=== PATIENT | female | born 1975 | race Hispanic/Latino ===

== ENCOUNTER → 2018-09-27 | Outpatient (CLI) | payer BC ==
[~2018-09-27] MED LIST: FLAGYL250 MG PO; LEVBID0.375 MG PO; OMEPRAZOLE40 MG PO; PROZAC10 MG PO; ULTRAM50 MG PO; WELLBUTRIN SR150 MG PO
--- NOTE | 2018-09-27 09:15 | Diagnostic Imaging Report ---
PROCEDURE: Transvaginal ultrasound imaging of the pelvis was performed. COMPARISON: None. INDICATIONS: PELVIC PAIN FINDINGS: UTERUS: The uterus measures 8.0 x 3.6 x 4.5 cm. The endometrial echo-complex measures 0.6 cm. There is fluid within the cervix. Focal hyperechoic nodule within the cervix measures 4 mm and likely represents a polyp. There are also several cysts present within the cervix with the largest measuring 9 mm. OVARIES/ADNEXA: Right ovary measures 3.1 x 2.2 x 3.7 cm. A dominant cyst in the right ovary measures 1.7 x 1.1 x 1.8 cm. Left ovary is not visualized into bowel gas. PELVIS: No free fluid. IMPRESSION: 1. Fluid within the cervix, cervical polyp and multiple nabothian cysts. 2. Dominant cyst in the right ovary. Denilson Peacock D.O. Dictated by: Denilson Peacock D.O. on 09/27/2018 at 9:26 Electronically approved by: Denilson Peacock D.O. on 09/27/2018 at 9:26
== END ==
LOC: US 07:47
PROVIDERS: ATTEND Internal Medicine
DX: R10.2 Pelvic and perineal pain (principal); N76.1 Subacute and chronic vaginitis
CPT/HCPCS: 76830

== ENCOUNTER → 2019-02-09 | Outpatient (CLI) | payer BC ==
--- NOTE | 2019-02-09 12:22 | Diagnostic Imaging Report ---
EXAM: US ABDOMEN COMPLETE DATE: 02/09/2019 10:55 AM Time stamp on exam: INDICATION: Gastritis COMPARISON: None TECHNIQUE: Transverse and longitudinal bose scale and color doppler sonographic images of the upper abdomen were obtained. FINDINGS: LIVER 16.7 cm in the right midclavicular line. Increased echogenicity, normal contour, no masses. SPLEEN 11.5 cm in maximum diameter. Normal echogenicity, no masses. GALLBLADDER Removed BILE DUCTS No intra nor extra-hepatic biliary dilation. Common bile duct measures 0.4 cm PANCREAS: Visualized portions are normal. RIGHT KIDNEY: 11.3 cm Echogenicity: Normal Collecting System: No hydronephrosis Stones: None Cyst/Mass: None LEFT KIDNEY: 12.2 cm Echogenicity: Normal Collecting System: No hydronephrosis Stones: None Cyst/Mass: None VESSELS: Aorta: Nonaneurysmal Inferior Vena Cava: Patent Main Portal Vein: 0.7 cm, normal size with hepatopetal flow. FREE FLUID: None IMPRESSION: Increased hepatic parenchymal echogenicity compatible with steatosis. Status post cholecystectomy. Signed by: Dr. Jay Harmon M.D. on 02/09/2019 12:19 PM
== END ==
LOC: US 10:45
PROVIDERS: ATTEND Internal Medicine
DX: K29.90 Gastroduodenitis, unspecified, without bleeding (principal)
CPT/HCPCS: 76700

== ENCOUNTER → 2019-04-28 | Day surgery (SDC) | payer BC ==
[~2019-04-28] MED LIST changes: +IBUPROFEN400 MG PO; +LIDOCAINE HCL 2% LOCAL INJ 5 ML SDV VIAL INJ ONE; +MAGNESIUM OXID400 MG PO; +PROPOFOL IV EMULSION 10 MG/ML 20 ML VIAL ONE; +linzess PO
--- OUTSIDE RECORDS SUMMARY | 2019-04-28 06:33 | XMS REPORT | Summary of Care ---
Author Author CATA RG M.D. Organization Unknown Address Unknown Phone Unavailable Care Team Providers Care Paint Department Supervisor Name Role Phone KAUR WALTON M.D. Unavailable Unavailable CATA RG M.D. 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 * Start : 07-Jul-2018 Active Ibuprofen TABS * Refills: 0 Active Ranitidine TABS * Refills: 0 Active Ambien CR TBCR * Refills: 0 Active MethylPREDNISolone 4 MG Oral Tablet Therapy Pack Complete Medrol Dose Jonas as instructed * Quantity: 1 Refills: 0 CATA RG M.D. * Start : 17-Mar-2017 Active 21 Tablet Pack Naproxen 500 MG Oral Tablet TAKE 1 TABLET TWICE DAILY NEEDED. * Quantity: 60 Refills: 0 KAUR WALTON M.D. * Start : 24-Sep-2017 Active Allergies and Adverse Reactions Name Dates Details No Known Drug Allergies (Allergy) Status: Active Past Medical History Name Dates Details History of depression (V11.8, Z86.59) Status: Resolved History of Diverticulosis (562.10, K57.90) Status: Resolved History of gastritis (V12.79, Z87.19) Status: Resolved Procedures Procedure Dates Details History of Colonoscopy Completed Immunization Name Dates Details Immunizations not documented Family History Name Dates Details Family history of Known health problems: none (V49.89, Z78.9) Status: Active Social History Name Dates Details - Status: Name Dates Details Never smoker Vital Signs Date Test Result Details No Known Vitals to report Results Date Description Value Details Results not documented Plan of Care Name Dates Details Planned Observations Planned Goals not documented Interventions Provided Medication Changes* Fluticasone Propionate 50 MCG/ACT Nasal Suspension - Renew Instructions Name Dates Details Instructions not documented Encounters Appointment; MIGUELINA MULTANI Encounter Diagnosis: Problem not documented On: 06-Jan-2017 11:00 Appointment; CATA RG M.D. Encounter Diagnosis: Problem not documented On: 03-Feb-2017 15:00 Appointment; CATA RG M.D. Encounter Diagnosis: Problem not documented On: 17-Mar-2017 15:30 Appointment; MIGUELINA MULTANI Encounter Diagnosis: Problem not documented On: 24-Mar-2017 14:00 Appointment; KAUR WALTON M.D. Encounter Diagnosis: Problem not documented On: 24-Sep-2017 8:00 Appointment; KAUR WALTON M.D. Encounter Diagnosis: Problem not documented On: 15-Oct-2017 8:00 Appointment; KAUR WALTON M.D. Encounter Diagnosis: Problem not documented On: 15-Oct-2017 16:45
--- OUTSIDE RECORDS SUMMARY | 2019-04-28 06:33 | XMS REPORT ---
Author Author [facility] Address Unknown Phone Unavailable Care Team Providers Care Scratch Finisher Name Role Phone Liseth SCHAEFER Unavailable Unavailable Problems This patient has no known problems. Allergies, Adverse Reactions, Alerts This patient has no known allergies or adverse reactions. Medications This patient has no known medications. Results Test Description Test Time Test Comments Text Results Atomic Results Result Comments US ABDOMEN COMPLETE 2019-02-09 12:16:00 [place] [address] Patient Name: DARIUS WILKERSON MR #: [id number] : 1975 Age/Sex: 43/F Req #: [id number] Adm Physician: Ordered by: ELVIS SCHAEFER MD Report #: [id number] Location: Room/Bed: Procedure: [id number] US/US ABDOMEN COMPLETE Exam Date: Exam Time: REPORT STATUS: Signed EXAM: US ABDOMEN COMPLETE DATE: 02/09/2019 10:55 AM Time stamp on ex am: INDICATION: Gastritis COMPARISON: None TECHNIQUE: Transverse and longitudinal bose scale and color doppler sonographic images of the upper abdomen were obtained. FINDINGS: LIVER 16.7 cm in the right midclavicular line. Increased echogenicity, normal contour, no masses. SPLEEN 11.5 cm in maximum diameter. Normal echogenicity, no masses. GALLBLADDER Removed BILE DUCTS No intra nor extra-hepatic biliary dilation. Common bile duct measures 0.4 cm PANCREAS: Visualized portions are normal. RIGHT KIDNEY: 11.3 cm Echogenicity: Normal Collecting System: No hydronephrosis Stones: None Cyst/Mass: None LEFT KIDNEY: 12.2 cm Echogenicity: Normal Collecting System: No hydronephrosis Stones: None Cyst/Mass: None VESSELS: Aorta: Nonaneurysmal Inferior Vena Cava: Patent Main Portal Vein: 0.7 cm, normal size with hepatopetal flow. FREE FLUID: None IMPRESSION: Increased hepatic parenchymal echogenicity compatible with steatosis. Status post cholecystectomy. Signed by: Dr. Mic Ibrahim M.D. on 02/09/2019 12:19 PM Dictated By: MIC IBRAHIM MD 18 Transcribed By: GARIMA on 02/09/191218 COPY TO: ELVIS SCHAEFER MD US TRANSVAGINAL 2018-09-27 09:26:00 [place] [address] Patient Name: DARIUS WILKERSON MR #: [id number] : 1975 Age/Sex: 43/F Req #: [id number] Adm Physician: Ordered by: ELVIS SCHAEFER MD Report #: [id number] Location: Room/Bed: Procedure: [id number] US/US TRANSVAGINAL Exam Date: Exam Time: REPORT STATUS: Signed PROCEDURE: Transvaginal ultrasound imaging of the pelvis was performed. COMPARISON: None. INDICATIONS: PELVIC PAIN FINDINGS: UTERUS: The uterus measures 8.0 x 3.6 x 4.5 cm. The endometrial echo- complex measures 0.6 cm. There is fluid within the cervix. Focal hyperechoic nodule within the cervix measures 4 mm and likely represents a polyp. There are also several cysts present within the cervix with the largest measuring 9 mm. OVARIES/ADNEXA: Right ovary measures 3.1 x 2.2 x 3.7 cm. A dominant cyst in the right ovary measures 1.7 x 1.1 x 1.8 cm. Left ovary is not visualized into bowel gas. PELVIS: No free fluid. IMPRESSION: 1. Fluid within the cervix, cervical polyp and multiple nabothian cysts. 2. Dominant cyst in the right ovary. Imelda Peacock D.O. Dictated by: Imelda Peacock D.O. on 09/27/2018 at 9:26 Electronically approved by: Imelda Peacock D.O. on 09/27/2018 at 9:26 Dictated By: IMELDA PEACOCK DO 5 Transcribed By: BRIDGET on 09/27/18925 COPY TO: ELVIS SCHAEFER MD SCR MAMM BILATERAL CAATRINO CAD DIGITAL 2018-08-30 11:54:18 - SCR MAMM BILATERAL CATARINO CAD DIGITALBILATERAL DIGITAL SCREENING MAMMOGRAM 3D/2D WITH CAD: 08/28/2018CLINICAL: Asymptomatic. Digital breast tomosynthesis was performed in addition to routine CC and MLO views. Current mammographic images were evaluated by either a 422 Group M-Vu or a House Party ImageChecker CAD (computer aided detection system). Comparison is made to exams dated 12/02/2016 mammogram - [facility], 09/19/2015 mammogram - b, and 07/10/2010 mammogram - [facility]. The tissue of both breasts is heterogeneously dense. This may lower the sensitivity of mammography. No suspicious mass, architectural distortion, malignant type calcification, or lymph node abnormality detected. Breast architecture is stable compared to prior exams.IMPRESSION: NEGATIVEThere is no mammographic evidence of malignancy. Resume annual screening mammography in one year. Keyur barrosn/penrad:08/30/2018 11:54:18 Commissioner Of [employer]ocation Services: Barbie Montague , [facility]-letter sent: BIRADS 1-2 Normal Mammogram BI-RADS: 1 Negative
[2019-04-28 09:50] VITALS: BP 123/89
--- NOTE | 2019-04-28 12:32 | Operative Report ---
DATE OF PROCEDURE: 04/28/2019 SURGEON: Bj Valera MD PROCEDURE PERFORMED: Esophagogastroduodenoscopy. PREOPERATIVE DIAGNOSIS: Peptic ulcer disease. POSTOPERATIVE DIAGNOSIS: Gastritis. PREOPERATIVE MEDICATIONS: Consisted of IV sedation administered under MAC anesthesia. PROCEDURE IN DETAIL: Using an Olympus AdCamp video gastroscope, it was inserted into the patient's oropharynx, advanced to the hypopharynx and down to the esophagus. The mucosa present in the esophagus was normal. The GE junction was at 40 cm. Hiatal hernia was not seen. The stomach was entered and insufflated with air. The mucosa present in the cardia, fundus, body, and antrum was viewed. There was evidence of a gastritis, but no evidence of erosions or ulcerations were seen. Biopsies were obtained in the antrum and the fundus looking for the H pylori infection. The motility was normal. The pylorus was normal. The duodenal bulb and postbulbar duodenum were viewed and found to be within normal limits. The endoscope was then withdrawn back up into the stomach, retroflexed viewing the cardia, fundus, and below. Again, gastritis was seen. The scope was then passed back from the fundus of the stomach back up into the esophagus, hypopharynx, oropharynx and out of the patient's mouth and the procedure was ended. In conclusion, we have findings of a gastritis only. Bj Valera MD SAF/MODL /[id number]
== END | disposition home or self-care (01) ==
LOC: OR 06:31
PROVIDERS: ATTEND Internal Medicine Gastroenterology
DX: K25.9 Gastric ulcer, unspecified as acute or chronic, without hemorrhage or perforation (principal); K31.9 Disease of stomach and duodenum, unspecified; F41.9 Anxiety disorder, unspecified; K76.0 Fatty (change of) liver, not elsewhere classified; F17.210 Nicotine dependence, cigarettes, uncomplicated
CPT/HCPCS: 43239; 81025; J2001; J2704

== ENCOUNTER → 2019-07-22 | Outpatient (CLI) | payer BC ==
[~2019-07-22] MED LIST changes: +DIATRIZOATE MEGL/DIATRIZOA SOD 30 ML BTL PO ONE; +IOPAMIDOL 370 MG/ML 200 ML INFUS..BTL INJ ONE; -LIDOCAINE HCL 2% LOCAL INJ 5 ML SDV VIAL INJ ONE; -PROPOFOL IV EMULSION 10 MG/ML 20 ML VIAL ONE; +SODIUM CHLORIDE 0.9% 50ML 50 ML ONE
[2019-07-22 18:51] LABS: BLOOD UREA NITROGEN 14 mg/dL (7-26); BUN/CREATININE RATIO 17 (6-25); CREATININE, SERUM 0.84 mg/dL (0.57-1.11); EST GLOMERULAR FILTRATION RATE > 60 ML/MIN (60-)
--- NOTE | 2019-07-22 19:54 | Diagnostic Imaging Report ---
EXAMINATION: CT of the abdomen and pelvis with contrast. TECHNIQUE: Helical CT images of the abdomen and pelvis were performed from the lung bases to the lesser trochanters after the intravenous administration of 100 cc of Isovue 300 and the oral administration of Gastroview. Coronal and sagittal reformatted images were obtained.Dose modulation, iterative reconstruction, and/or weight based adjustment of the mA/kV was utilized to reduce the radiation dose to as low as reasonably achievable. COMPARISON: None. CLINICAL HISTORY:Abdominal pain DISCUSSION: ABDOMEN/PELVIS: LOWER THORAX:Unremarkable. HEPATOBILIARY: No focal hepatic lesions. No intra-or extrahepatic biliary ductal dilation. Cholecystectomy. SPLEEN: No splenomegaly. PANCREAS: No focal masses or ductal dilatation. ADRENALS: No adrenal nodules. KIDNEYS/URETERS: No hydronephrosis, stones, or solid mass lesions. PELVIC ORGANS/BLADDER: The bladder is normal. PERITONEUM/RETROPERITONEUM: No free air or fluid. LYMPH NODES: No intra-abdominal, retroperitoneal, pelvic or inguinal lymphadenopathy. VESSELS: Unremarkable. GI TRACT: No distention or wall thickening. Colonic diverticulosis. No inflammatory change. BONES AND SOFT TISSUE: No bony destructive lesions. No soft tissue abnormalities. IMPRESSION: No acute CT finding. Colonic diverticulosis without inflammatory change Signed by: Dr. Roland Harmon M.D. on 07/22/2019 7:50 PM
== END ==
LOC: CT 18:04
PROVIDERS: ATTEND Internal Medicine
DX: R10.30 Lower abdominal pain, unspecified (principal); K58.1 Irritable bowel syndrome with constipation
CPT/HCPCS: 36415; 74177; 82565; 84520; Q9967

== ENCOUNTER → 2020-12-07 | Outpatient (CLI) | payer BC ==
[~2020-12-07] MED LIST changes: -DIATRIZOATE MEGL/DIATRIZOA SOD 30 ML BTL PO ONE
[2020-12-07 18:07] LABS: BLOOD UREA NITROGEN 16 mg/dL (7-26); BUN/CREATININE RATIO 20 (6-25); CREATININE, SERUM 0.82 mg/dL (0.57-1.11); EST GLOMERULAR FILTRATION RATE > 60 ML/MIN (60-)
== END ==
LOC: CT 17:23
PROVIDERS: ATTEND Internal Medicine
DX: K43.9 Ventral hernia without obstruction or gangrene (principal); R10.33 Periumbilical pain; G89.18 Other acute postprocedural pain
CPT/HCPCS: 36415; 74177; 82565; 84520; Q9967